=== PATIENT | male | born 1945 | race Two or more races ===

== ENCOUNTER 2018-07-31 12:31 | Inpatient (IN) | payer MEDICARE, MEDICAID ==
[~2018-07-31] VITALS: Ht 165.1 cm; Wt 98.9 kg
[2018-07-31] MEDS ORDERED: ASPIRIN 81MG TABLET PO ONE (13:00)
[2018-07-31] MEDS ORDERED: NITROGLYCERIN 0.4MG TABLET SL SL PRN (13:00)
[2018-07-31 13:28] LABS: BASOPHILS % 0.4 % (0.0-2.0); EOSINOPHILS % 0.2 % (0.0-5.0); HEMATOCRIT. 38.7 % (42.0-52.0); HEMOGLOBIN. 13.1 g/dL (14.0-18.0); LYMPHOCYTES % 12.2 % (20.0-50.0); MEAN CORPUSCULAR HEMOGLOBIN 29.9 pg (28.0-32.0); MEAN CORPUSCULAR VOLUME 87.8 fL (80.0-94.0); MEAN PLATELET VOLUME 8.6 fl (7.4-10.4); MONOCYTES % 6.3 % (2.0-8.0); NEUTROPHILS % 80.9 % (40.0-76.0); PLATELET 159 x1000/uL (130-400); RED CELL DISTRIBUTION WIDTH 14.6 % (11.6-14.6)
[2018-07-31 13:35] LABS: CHLORIDE 109 mEq/L (98-107)
[2018-07-31] MEDS ORDERED: FUROSEMIDE 20MG/2ML VIAL IVP ONE (15:00)
[2018-07-31] MEDS ORDERED: LORAZEPAM 0.5MG TABLET PO PRN (17:15)
[2018-07-31] MEDS ORDERED: LEVOFLOXACIN 500MG PREMIX 100 ML IV SCH ×2 (17:15→22:00)
[2018-07-31] MEDS ORDERED: DEXTROSE 50% WATER 50ML SYRINGE IV PRN (17:15)
[2018-07-31] MEDS ORDERED: HYDROCODONE/ACETAMINOPHEN 5/325MG TABLET PO PRN (17:15)
[2018-07-31] MEDS ORDERED: ACETAMINOPHEN 325MG TABLET PO PRN (17:15)
[2018-07-31] MEDS ORDERED: MAGNESIUM/ALUMINUM HYDROXIDE/SIMETHICONE 30ML UDC PO PRN (17:15)
[2018-07-31] MEDS ORDERED: CLONIDINE 0.1MG TABLET PO PRN (17:15)
[2018-07-31] MEDS ORDERED: ACETAMINOPHEN 650MG SUPP PR PRN (17:15)
[2018-07-31] MEDS ORDERED: IPRATROPIUM/ALBUTEROL 0.5-3(2.5)MG/3ML NEB INH PRN (17:15)
[2018-07-31] MEDS ORDERED: DIPHENHYDRAMINE 50MG/ML VIAL IV PRN (17:15)
[2018-07-31] MEDS ORDERED: ONDANSETRON HCL 4MG/2ML INJ IV PRN (17:15)
[2018-07-31] MEDS ORDERED: DOCUSATE SODIUM 100MG CAPSULE PO PRN (17:15)
[2018-07-31 17:28] LABS: CLARITY URINE CLEAR (CLEAR); COLOR URINE DARK YELLOW (YELLOW); KETONES URINE TRACE (NEGATIVE); LEUKOCYTE ESTERASE URINE NEGATIVE (NEGATIVE); NITRITE URINE NEGATIVE (NEGATIVE); OCCULT BLOOD URINE NEGATIVE (NEGATIVE); PROTEIN URINE 3+ (NEGATIVE); UROBILINOGEN URINE 0.2 E.U./dL (0.2-1.0)
[2018-07-31 17:29] LABS: INR 1.3; PROTHROMBIN TIME 13.1 sec (9.6-11.0)
[2018-07-31 17:37] LABS: *AMPHETAMINES SCREEN URINE NEGATIVE (NEGATIVE); *BARBITURATES SCREEN URINE NEGATIVE (NEGATIVE); *BENZODIAZEPINES SCREEN URINE NEGATIVE (NEGATIVE); *COCAINE SCREEN URINE NEGATIVE (NEGATIVE); METHADONE URINE SCREEN NEGATIVE (NEGATIVE); OPIATES URINE SCREEN NEGATIVE (NEGATIVE)
[2018-07-31 17:38] LABS: CANNABINOID URINE SCREEN NEGATIVE (NEGATIVE); PHENCYCLIDINE URINE SCREEN NEGATIVE (NEGATIVE)
[2018-07-31] MEDS: INSULIN LISPRO 100 UNITS/ML SUBCUT SCH ×2 (18:20→23:11)
[2018-07-31] MEDS ORDERED: NA PHOS,M-B/NA PHOS,DI-BA ENEMA 118ML PR PRN (21:00)
[2018-07-31] MEDS: BLOOD SUGAR DIAGNOSTIC STRIP TEST SCH (21:00)
[2018-07-31 22:05] VITALS: BP 129/70
[2018-07-31] MEDS: GUAIFENESIN 200MG/10ML SUGAR FREE UDC PO PRN (23:08)
[2018-07-31] MEDS: LEVOFLOXACIN 500MG PREMIX 100 ML IV SCH (23:46)
[2018-08-01] MEDS ORDERED: AMLO10TA80 PO (00:20)
[2018-08-01] MEDS ORDERED: METF-816 PO (00:20)
[2018-08-01] MEDS ORDERED: SIMV20TA6 PO (00:20)
[2018-08-01] MEDS ORDERED: CARV25TA47 PO (00:20)
[2018-08-01] MEDS ORDERED: LISI-604 PO (00:20)
[2018-08-01] MEDS ORDERED: APIX5TAB PO (00:21)
[2018-08-01 01:22] LABS: CREATINE KINASE MB FRACTION 3.7 ng/mL (0.5-3.6)
[2018-08-01] MEDS: BLOOD SUGAR DIAGNOSTIC STRIP TEST SCH ×4 (05:55→20:48)
[2018-08-01 06:35] LABS: BG BASE EXCESS -2.8 mmol/L (-2.0-2.0); BG CARBOXYHEMOGLOBIN 0.8 % (0.5-1.5); BG DEOXYHEMOGLOBIN 10.4 % (0.0-5.0); BG HCO3 ACT 21.6 mmol/L (22.0-26.0); BG METHEMOGLOBIN 0.1 % (0.0-1.5); BG OXYGEN SATURATION 89.5 % (92.0-98.5); BG OXYHEMOGLOBIN 88.7 % (94.0-97.0); BG PCO2 36.1 mmHg (35.0-45.0); BG PH 7.394 (7.350-7.450); BG PO2 55.9 mmHg (75.0-100.0); BG SAMPLE SITE RIGHT RADIAL; BG TOTAL HEMOGLOBIN 13.1 g/dL (12.0-18.0); BG VENT MODE ROOM AIR
[2018-08-01 07:31] LABS: BASOPHILS % 0.6 % (0.0-2.0); EOSINOPHILS % 2.3 % (0.0-5.0); HEMOGLOBIN. 12.9 g/dL (14.0-18.0); LYMPHOCYTES % 25.6 % (20.0-50.0); MEAN CORPUSCULAR HEMOGLOBIN 29.2 pg (28.0-32.0); MEAN CORPUSCULAR VOLUME 88.6 fL (80.0-94.0); MEAN PLATELET VOLUME 9.6 fl (7.4-10.4); MONOCYTES % 8.9 % (2.0-8.0); NEUTROPHILS % 62.6 % (40.0-76.0); PLATELET 167 x1000/uL (130-400); RED CELL DISTRIBUTION WIDTH 14.8 % (11.6-14.6)
[2018-08-01 07:39] LABS: CHLORIDE 112 mEq/L (98-107)
[2018-08-01] MEDS: INSULIN LISPRO 100 UNITS/ML SUBCUT SCH ×4 (07:40→20:57)
[2018-08-01 07:54] LABS: CREATINE KINASE MB FRACTION 3.4 ng/mL (0.5-3.6); LDL CHOLESTEROL 41 mg/dL (5-100)
[2018-08-01 07:55] LABS: CREATINE KINASE 123 IU/L (39-308); T4 FREE 1.26 ng/dL (0.76-1.46)
[2018-08-01 07:56] LABS: HDL CHOLESTEROL 45 mg/dL (40-59)
[2018-08-01 08:00] VITALS: BP 110/67
[2018-08-01] MEDS ORDERED: FUROSEMIDE 40MG/4ML VIAL IV SCH (09:00)
[2018-08-01] MEDS: ASPIRIN 81MG EC TABLET PO SCH (09:38)
[2018-08-01 12:00] VITALS: BP 108/87
[2018-08-01] MEDS: CARVEDILOL 3.125 MG TABLET PO SCH ×2 (14:19→20:48)
[2018-08-01 16:00] VITALS: BP 141/69
[2018-08-01] MEDS: FUROSEMIDE 40MG/4ML VIAL IV SCH (17:38)
[2018-08-01] MEDS: GUAIFENESIN 200MG/10ML SUGAR FREE UDC PO PRN (20:48)
[2018-08-02] MEDS: LEVOFLOXACIN 500MG PREMIX 100 ML IV SCH (00:15)
[2018-08-02] MEDS: INSULIN LISPRO 100 UNITS/ML SUBCUT SCH ×4 (06:42→19:09)
[2018-08-02] MEDS: BLOOD SUGAR DIAGNOSTIC STRIP TEST SCH ×3 (06:42→18:36)
[2018-08-02] MEDS: FUROSEMIDE 40MG/4ML VIAL IV SCH ×2 (07:20→18:42)
[2018-08-02] MEDS: GUAIFENESIN 200MG/10ML SUGAR FREE UDC PO PRN (07:27)
[2018-08-02] MEDS: CARVEDILOL 3.125 MG TABLET PO SCH ×2 (09:00→09:14)
[2018-08-02] MEDS: ASPIRIN 81MG EC TABLET PO SCH (14:08)
[2018-08-02 16:27] VITALS: BP 133/78
== END 2018-08-02 19:35 | disposition home health service (06) | DRG 280 ==
LOC: ER 12:31 → 7WST 14:44 → EDBEDREQ 14:46 → EDBEDREQTM 14:46 → ENRESERV 20:33 → CMPBEDREQ 08-02 06:32
PROVIDERS: ADMIT Internal Medicine; ATTEND Internal Medicine
DX: I21.4 Non-ST elevation (NSTEMI) myocardial infarction (principal); I50.43 Acute on chronic combined systolic (congestive) and diastolic (congestive) heart failure; R04.2 Hemoptysis; I42.9 Cardiomyopathy, unspecified; I11.0 Hypertensive heart disease with heart failure; I24.9 Acute ischemic heart disease, unspecified; J06.9 Acute upper respiratory infection, unspecified; D64.9 Anemia, unspecified; E66.9 Obesity, unspecified; E11.65 Type 2 diabetes mellitus with hyperglycemia; E78.5 Hyperlipidemia, unspecified; Z79.01 Long term (current) use of anticoagulants; Z79.899 Other long term (current) drug therapy; Z95.810 Presence of automatic (implantable) cardiac defibrillator; Z68.36 Body mass index [BMI] 36.0-36.9, adult; Z79.84 Long term (current) use of oral hypoglycemic drugs
CPT/HCPCS: 36415; 36600; 71045; 80061; 80305; 82375; 82550; 82553; 82805; 82962; 83036; 83880; 84439; 84443; 84484; 93005; 93306; 93970; 94618; 96374; 99291; J1815; J1940; J1956; J7620

== ENCOUNTER 2018-10-29 17:05 | Emergency (ER) | payer MEDICARE, MEDICAID ==
[~2018-10-29] VITALS: Ht 162.6 cm; Wt 76.0 kg
[~2018-10-29 17:05] MED LIST: AMLO10TA80 PO; APIX5TAB PO; CARV25TA47 PO; LISI-604 PO; METF-816 PO; SIMV20TA6 PO
[2018-10-29] MEDS ORDERED: SODIUM CHLORIDE 0.9% 1,000 ML IV ONE (18:20)
[2018-10-29] MEDS ORDERED: ONDANSETRON HCL 4MG/2ML INJ IV STA (18:20)
[2018-10-29] MEDS ORDERED: MAGNESIUM/ALUMINUM HYDROXIDE/SIMETHICONE 30ML UDC PO STA (18:20)
[2018-10-29 19:00] VITALS: BP 123/63
[2018-10-29 19:05] LABS: BASOPHILS % 0.2 % (0.0-2.0); EOSINOPHILS % 3.5 % (0.0-5.0); HEMATOCRIT. 44.3 % (42.0-52.0); HEMOGLOBIN. 14.8 g/dL (14.0-18.0); LYMPHOCYTES % 11.5 % (20.0-50.0); MEAN CORPUSCULAR HEMOGLOBIN 28.5 pg (28.0-32.0); MEAN CORPUSCULAR VOLUME 85.4 fL (80.0-94.0); MEAN PLATELET VOLUME 8.9 fl (7.4-10.4); MONOCYTES % 6.8 % (2.0-8.0); PLATELET 133 x1000/uL (130-400); RED BLOOD CELL COUNT 5.19 mill/uL (4.7-6.1)
[2018-10-29 19:06] LABS: CLARITY URINE CLEAR (CLEAR); COLOR URINE DARK YELLOW (YELLOW); KETONES URINE 1+ (NEGATIVE); LEUKOCYTE ESTERASE URINE TRACE (NEGATIVE); NITRITE URINE NEGATIVE (NEGATIVE); OCCULT BLOOD URINE NEGATIVE (NEGATIVE); PROTEIN URINE 1+ (NEGATIVE); SPECIFIC GRAVITY URINE 1.023 (1.005-1.030)
[2018-10-29 19:08] LABS: INR 1.2; PROTHROMBIN TIME 11.9 sec (9.6-11.0)
[2018-10-29 19:09] LABS: CHLORIDE 106 mEq/L (98-107)
[2018-10-29] MEDS ORDERED: IOHEXOL-300 100 ML BOTTLE ONE (19:51)
== END 2018-10-29 20:45 | disposition home or self-care (01) ==
LOC: EDBD → ER 17:05 → MERGE 17:05 → ER 20:45
DX: R10.33 Periumbilical pain (principal); R11.0 Nausea; R19.7 Diarrhea, unspecified; J44.9 Chronic obstructive pulmonary disease, unspecified; E11.9 Type 2 diabetes mellitus without complications; I10 Essential (primary) hypertension; Z95.0 Presence of cardiac pacemaker
CPT/HCPCS: 36415; 74176; 80053; 81003; 83690; 85025; 85610; 93005; 96361; 96374; 99284; J2405; J7030; Q9967

== ENCOUNTER 2020-02-29 11:43 | Inpatient (IN) | payer MEDICARE, MEDICAID ==
[~2020-02-29] VITALS: Ht 167.6 cm; Wt 100.5 kg
[~2020-02-29 11:43] MED LIST changes: +SIMV-43 PO; -SIMV20TA6 PO
[2020-02-29] MEDS ORDERED: ASPIRIN 81MG TABLET PO ONE (13:00)
[2020-02-29] MEDS ORDERED: NITROGLYCERIN OINT 1GM/INCH UDPKT TD ONE (13:00)
[2020-02-29] MEDS ORDERED: FUROSEMIDE 40MG/4ML VIAL IV ONE (13:00)
[2020-02-29 14:42] LABS: BASOPHILS % 0.5 % (0.0-2.0); EOSINOPHILS % 4.1 % (0.0-5.0); HEMATOCRIT. 38.3 % (42.0-52.0); HEMOGLOBIN. 12.7 g/dL (14.0-18.0); LYMPHOCYTES % 26.2 % (20.0-50.0); MEAN CORPUSCULAR HEMOGLOBIN 29.9 pg (28.0-32.0); MEAN CORPUSCULAR VOLUME 90.2 fL (80.0-94.0); MEAN PLATELET VOLUME 8.8 fl (7.4-10.4); MONOCYTES % 7.1 % (2.0-8.0); NEUTROPHILS % 62.1 % (40.0-76.0); PLATELET 138 x1000/uL (130-400); RED BLOOD CELL COUNT 4.25 mill/uL (4.7-6.1); RED CELL DISTRIBUTION WIDTH 16.1 % (11.6-14.6)
[2020-02-29 14:49] LABS: CHLORIDE 109 mEq/L (98-107)
[2020-02-29 15:25] LABS: INR 1.2; PARTIAL THROMBOPLASTIN TIME 27.1 sec (23.4-31.0); PROTHROMBIN TIME 12.4 sec (9.6-11.0)
[2020-02-29] MEDS ORDERED: SODIUM POLYSTYRENE SULFONATE 15 G/60 ML BOT PO ONE (15:30)
[2020-02-29] MEDS ORDERED: SODIUM BICARBONATE 8.4% 1 MEQ/ML 50ML SYR IV ONE (15:30)
[2020-02-29 21:00] VITALS: BP 150/71
[2020-02-29] MEDS ORDERED: GLIP5TAB12 PO (22:15)
[2020-02-29] MEDS ORDERED: CARV6.2548 PO (22:15)
[2020-02-29] MEDS ORDERED: AMI2 PO (22:15)
[2020-02-29] MEDS ORDERED: INSU100I28 SQ (22:15)
[2020-02-29] MEDS ORDERED: ATOR40TA70 PO (22:15)
[2020-02-29] MEDS ORDERED: WARF-53 PO (22:15)
[2020-02-29] MEDS ORDERED: POTA20TA82 PO (22:15)
[2020-02-29] MEDS ORDERED: ISOS30TA6 PO (22:15)
[2020-02-29] MEDS ORDERED: TORS20TA4 PO (22:15)
[2020-02-29] MEDS ORDERED: IPRATROPIUM/ALBUTEROL 0.5-3(2.5)MG/3ML NEB HHN PRN (22:45)
[2020-02-29] MEDS ORDERED: DEXTROSE 50% WATER 50ML SYRINGE IV PRN (22:45)
[2020-02-29] MEDS ORDERED: WARFARIN SODIUM 5MG TABLET PO NR (23:15)
[2020-02-29] MEDS ORDERED: MEDICATION NOT ON FORMULARY EA (Insulin Glargine,Hum.rec.anlog (Lantus Solostar) 20 UNIT SQ SCH (23:15)
[2020-02-29] MEDS: BLOOD SUGAR DIAGNOSTIC STRIP TEST SCH (23:25)
[2020-02-29] MEDS: CARVEDILOL 6.25 MG TABLET PO SCH (23:31)
[2020-02-29] MEDS: INSULIN LISPRO 100 UNITS/ML SUBCUT SCH (23:33)
[2020-02-29] MEDS ORDERED: INSULIN GLARGINE UD 100 UNITS/ML SYR SUBCUT NR (23:45)
[2020-03-01 00:42] VITALS: BP 162/94
[2020-03-01 04:00] VITALS: BP 130/74
[2020-03-01] MEDS: PANTOPRAZOLE 40MG DR TABLET PO SCH (06:20)
[2020-03-01] MEDS: BLOOD SUGAR DIAGNOSTIC STRIP TEST SCH ×4 (06:20→21:48)
[2020-03-01] MEDS ORDERED: FUROSEMIDE 40MG/4ML VIAL IVP SCH (07:15)
[2020-03-01 07:16] LABS: BASOPHILS % 0.8 % (0.0-2.0); EOSINOPHILS % 6.9 % (0.0-5.0); HEMATOCRIT. 38.4 % (42.0-52.0); HEMOGLOBIN. 12.9 g/dL (14.0-18.0); MEAN CORPUSCULAR VOLUME 89.2 fL (80.0-94.0); MEAN PLATELET VOLUME 8.9 fl (7.4-10.4); MONOCYTES % 8.1 % (2.0-8.0); NEUTROPHILS % 61.2 % (40.0-76.0); PLATELET 128 x1000/uL (130-400); RED BLOOD CELL COUNT 4.31 mill/uL (4.7-6.1); RED CELL DISTRIBUTION WIDTH 16.1 % (11.6-14.6)
[2020-03-01 07:22] LABS: INR 1.2; PROTHROMBIN TIME 12.9 sec (9.6-11.0)
[2020-03-01 07:24] LABS: T4 FREE 1.42 ng/dL (0.76-1.46)
[2020-03-01 08:09] VITALS: BP 142/81
[2020-03-01] MEDS: INSULIN LISPRO 100 UNITS/ML SUBCUT SCH ×4 (08:57→21:50)
[2020-03-01] MEDS: CARVEDILOL 6.25 MG TABLET PO SCH ×2 (08:58→21:48)
[2020-03-01] MEDS: ISOSORBIDE MONONITRATE 30MG TABLET SR 24HR PO SCH (08:58)
[2020-03-01] MEDS: AMIODARONE HCL 200 MG TABLET PO SCH (08:58)
[2020-03-01 12:37] VITALS: BP 136/79
[2020-03-01] MEDS ORDERED: ONDANSETRON HCL 4MG/2ML INJ IV PRN (14:15)
[2020-03-01] MEDS ORDERED: ACETAMINOPHEN 650MG SUPP PR PRN (14:15)
[2020-03-01] MEDS ORDERED: BISACODYL 10MG SUPP PR PRN (14:15)
[2020-03-01] MEDS ORDERED: ACETAMINOPHEN 325MG TABLET PO PRN (14:15)
[2020-03-01] MEDS ORDERED: LACTULOSE 20G/30ML UDC PO PRN (14:15)
[2020-03-01] MEDS ORDERED: LORAZEPAM 2MG/ML CPJ IV PRN (14:15)
[2020-03-01] MEDS ORDERED: HYDROCODONE/ACETAMINOPHEN 5/325MG TABLET PO PRN (14:15)
[2020-03-01 16:03] VITALS: BP 125/68
[2020-03-01 17:00] LABS: BG BASE EXCESS 1.6 mmol/L (-2.0-2.0); BG CARBOXYHEMOGLOBIN 1.1 % (0.5-1.5); BG DEOXYHEMOGLOBIN 3.9 % (0.0-5.0); BG FRACTION INSPIRED OXYGEN 21; BG HCO3 ACT 25.9 mmol/L (22.0-26.0); BG METHEMOGLOBIN 0.2 % (0.0-1.5); BG OXYHEMOGLOBIN 94.8 % (94.0-97.0); BG PCO2 39.5 mmHg (35.0-45.0); BG PH 7.434 (7.350-7.450); BG PO2 79.4 mmHg (75.0-100.0); BG SAMPLE SITE RIGHT RADIAL; BG TOTAL HEMOGLOBIN 13.5 g/dL (12.0-18.0); BG VENT MODE ROOM AIR
[2020-03-01] MEDS: ASPIRIN 81MG TABLET PO SCH (18:13)
[2020-03-01] MEDS: FUROSEMIDE 40MG/4ML VIAL IVP SCH (18:14)
[2020-03-01 20:00] VITALS: BP 116/62
[2020-03-01] MEDS ORDERED: ATORVASTATIN CALCIUM 40MG TABLET PO SCH (21:00)
[2020-03-01] MEDS ORDERED: MEDICATION NOT ON FORMULARY EA (Insulin Glargine,Hum.rec.anlog (Lantus Solostar) 20 UNIT SQ SCH (21:00)
[2020-03-01] MEDS: AMLODIPINE 2.5MG TABLET PO SCH (21:48)
[2020-03-01] MEDS ORDERED: INSULIN GLARGINE UD 100 UNITS/ML SYR SUBCUT SCH ×2 (22:00)
[2020-03-02] VITALS: BP 140/70
[2020-03-02 04:00] VITALS: BP 102/48
[2020-03-02 06:15] LABS: BASOPHILS % 0.7 % (0.0-2.0); EOSINOPHILS % 6.3 % (0.0-5.0); HEMATOCRIT. 39.7 % (42.0-52.0); HEMOGLOBIN. 13.4 g/dL (14.0-18.0); LYMPHOCYTES % 26.9 % (20.0-50.0); MEAN CORPUSCULAR HEMOGLOBIN 29.6 pg (28.0-32.0); MEAN CORPUSCULAR VOLUME 88.2 fL (80.0-94.0); MEAN PLATELET VOLUME 8.4 fl (7.4-10.4); MONOCYTES % 8.4 % (2.0-8.0); NEUTROPHILS % 57.7 % (40.0-76.0); PLATELET 133 x1000/uL (130-400); RED BLOOD CELL COUNT 4.51 mill/uL (4.7-6.1); RED CELL DISTRIBUTION WIDTH 15.5 % (11.6-14.6)
[2020-03-02] MEDS: BLOOD SUGAR DIAGNOSTIC STRIP TEST SCH ×3 (06:20→17:37)
[2020-03-02] MEDS: PANTOPRAZOLE 40MG DR TABLET PO SCH (06:20)
[2020-03-02] MEDS: FUROSEMIDE 40MG/4ML VIAL IVP SCH (06:20)
[2020-03-02 06:36] LABS: INR 1.2; PROTHROMBIN TIME 12.6 sec (9.6-11.0)
[2020-03-02] MEDS: ASPIRIN 81MG TABLET PO SCH (08:25)
[2020-03-02] MEDS: ISOSORBIDE MONONITRATE 30MG TABLET SR 24HR PO SCH (08:25)
[2020-03-02] MEDS: AMIODARONE HCL 200 MG TABLET PO SCH (08:26)
[2020-03-02] MEDS: CARVEDILOL 6.25 MG TABLET PO SCH (08:26)
[2020-03-02] MEDS: AMLODIPINE 2.5MG TABLET PO SCH (08:26)
[2020-03-02] MEDS: INSULIN LISPRO 100 UNITS/ML SUBCUT SCH ×3 (08:27→17:39)
[2020-03-02 08:42] VITALS: BP 134/69
[2020-03-02 12:07] VITALS: BP 119/59
[2020-03-02] MEDS ORDERED: POTASSIUM CHLORIDE 20MEQ TABLET SR PO NR (12:30)
[2020-03-02 15:30] VITALS: BP 127/77
[2020-03-02 16:23] VITALS: BP 127/77
[2020-03-02] MEDS ORDERED: ASPI-1497 MT (17:56)
[2020-03-02] MEDS ORDERED: FURO20TA4 MT (17:57)
[2020-03-02] MEDS ORDERED: AMLO2.5T45 MT (17:57)
[2020-03-02] MEDS ORDERED: PANT40TA4 MT (17:57)
[2020-03-02] MEDS ORDERED: FUROSEMIDE 20MG TABLET PO SCH (18:00)
[2020-03-03] MEDS ORDERED: POTASSIUM CHLORIDE 20MEQ TABLET SR PO SCH (09:00)
== END 2020-03-02 19:05 | disposition home or self-care (01) | DRG 291 ==
LOC: ER 11:43 → 6WST 15:52 → EDBEDREQ 15:55 → ENRESERV 18:54
PROVIDERS: ADMIT Internal Medicine; ATTEND Internal Medicine
DX: I13.0 Hypertensive heart and chronic kidney disease with heart failure and stage 1 through stage 4 chronic kidney disease, or unspecified chronic kidney disease (principal); I50.23 Acute on chronic systolic (congestive) heart failure; N17.9 Acute kidney failure, unspecified; I42.9 Cardiomyopathy, unspecified; E87.5 Hyperkalemia; K74.60 Unspecified cirrhosis of liver; R06.03 Acute respiratory distress; E11.22 Type 2 diabetes mellitus with diabetic chronic kidney disease; E11.65 Type 2 diabetes mellitus with hyperglycemia; E66.09 Other obesity due to excess calories; E78.5 Hyperlipidemia, unspecified; I27.20 Pulmonary hypertension, unspecified; I34.0 Nonrheumatic mitral (valve) insufficiency; I50.82 Biventricular heart failure; E78.00 Pure hypercholesterolemia, unspecified; D64.9 Anemia, unspecified; D69.6 Thrombocytopenia, unspecified; N18.2 Chronic kidney disease, stage 2 (mild); I48.0 Paroxysmal atrial fibrillation; Z79.899 Other long term (current) drug therapy; Z79.4 Long term (current) use of insulin; Z95.0 Presence of cardiac pacemaker; Z79.01 Long term (current) use of anticoagulants; Z82.3 Family history of stroke; Z82.49 Family history of ischemic heart disease and other diseases of the circulatory system; Z68.35 Body mass index [BMI] 35.0-35.9, adult
CPT/HCPCS: 36415; 36600; 71045; 80048; 80053; 80061; 82375; 82805; 82962; 83036; 83880; 84439; 84443; 84484; 85025; 93005; 93306; 96374; 97162; 99291; J1815; J1940; J3490